=== PATIENT | female | born 1960 | race Caucasian/White ===

== ENCOUNTER 2024-09-20 14:18 | Emergency (ER) | payer BC, SELFPAY ==
--- OUTSIDE RECORDS SUMMARY | 2024-09-20 14:20 | XMS_ITS | Clinical Summary ---
Author Organization [employer] [facility] Address [address] [place] [address] Care Team Providers Care Skirt Panel Assembler Name Role Phone Racheal Aragon DO Primary Care Provider [phone] Allergies Active Allergy Reactions Criticality Noted Date Comments Sulfa (Sulfonamide Antibiotics) *Unknown - Childhood Rxn 06/06/2024 Medications losartan (COZAAR) 100 mg tabletIndications:HTN (hypertension) Take 1/2 tablet (50 mg) daily for two weeks, then increase to 1 tablet (100 mg) daily thereafter. 90 Tablet 3 06/07/19 25 Active naltrexone 50 mg tabletIndications:Alcoh ol abuse, daily use Take 1 Tablet (50 mg) by mouth once daily. 30 Tablet 1 07/10/19 25 Active atorvastatin 20 mg tabletIndications:Pure hypercholesterolemia Take 1 Tablet (20 mg) by mouth at bedtime. 90 Tablet 3 09/06/19 25 Active hydroCHLOROthiazide 50 mg tabletIndications:HTN (hypertension) Take 1 Tablet (50 mg) by mouth once daily. 90 Tablet 09/06/19 25 Active hydroCHLOROthiazide 25 mg tabletIndications:HTN (hypertension) Take 1 Tablet (25 mg) by mouth once daily. 30 Tablet 1 07/10/19 25 025 Disconti nued(Reo rder (E-cance l not sent)) atorvastatin 20 mg tabletIndications:Pure hypercholesterolemia Take 1 Tablet (20 mg) by mouth at bedtime. 90 Tablet 07/15/19 25 025 Disconti nued(Reo rder (E-cance l not sent)) Hospital, Clinic, or Other Facility Administered Medication Ordered Dose Route Frequency Start Date End Date Status naltrexone ER (4 weeks) (VIVITROL) 380 mg/4 mL intramuscular injection 380 mgIndications:Alcohol abuse, daily use 380 mg IM ONE TIME 09/18/2024 09/18/2024 Ended Active Problems Problem Noted Date Diagnosed Date ASCUS of cervix with negative high risk HPV 04/2024 Overview (07/25/2024): 06/2024 ASCUS/HPV negative Plan: HPV based testing in 3 years Pure hypercholesterolemia 07/14/2024 HTN (hypertension) 06/06/2024 Alcohol abuse, daily use 06/06/2024 Depression 06/06/2024 Moderate episode of recurrent major depressive d isorder 10/31/2016 Generalized anxiety disorder 08/31/2016 Encounters Date Type Department Care Team Description 09/18/2024 1:40 PM CDT Nurse/Clinic Staff Only [address] [address] Immunization/Injecti on (Vivitrol - first dose) 09/18/[address] [place] [address] Racheal Aragon, Immunization/Injecti on (Vivitrol order) 09/18/2024 Travel 09/17/2024 2:30 PM CDT Ancillary Procedure [address] [place] [address] Arrived 09/17/2024 2:00 PM CDT Ancillary Procedure [address] [address] Arrived 09/17/2024 Ancillary Orders [address] [address] Racheal Aragon DO 09/17/2024 Travel 09/09/[address] [place] [address] Tech, Mammo Results 09/05/2024 8:45 AM CDT Office Visit [address] [place] [address] Racheal Aragon DO Medication Management (Naltrexone - 2 drinks daily, was drinking 3 ) 09/05/2024 Travel 09/03/2024 9:15 AM CDT Orders Only [facility] [place] [address] [place] [address] Lab, [place] [facility] 09/03/2024 8:40 AM CDT Ancillary Procedure [facility] [address] [place] [address] 09/03/2024 Travel 09/01/2024 Travel 08/26/2024 Telephone [facility] [address] [place] [address] [address] Racheal Aragon DO Lab (Lab orders needed) 07/09/2024 8:45 AM CDT Office Visit [facility] [address] [place] [address] [address] Racheal Aragon DO Physical (63 year old); Immunization/Injecti on 07/09/2024 Travel 07/06/2024 Travel from Last 3 Months Immunizations Immunization Administration Dates Next Due Hepatitis A (Adult) 07/20/2010,01/12/2009 Hepatitis A, Unspecified 01/12/2009 Influenza Virus, Unspecified 12/25/2016 Influenza, IIV3 (Age >=3 years) 01/01/2014,12/11 Influenza, IIV4 04/14/2022,,02/02/2020,2019,12/24/2017,12/25/2016,12/11/2012 Influenza,LAIV3 Live Intrana brittnee (Flumist) 12/14/2010 Pneumococcal Conj 20-valent (Prevnar 20) 07/09/2024 Td, Preservative Free (age > = 7 Years) 05/22/2019,08/01/1989 Tdap 11/28/2006 Family History Medical History Relation Name Comments Diabetes type II Father Hypertension Father Hypertension Mother Cancer-breast No Family History Cancer-colon No Family History Relation Name Status Comments Father Mother Sister x3 Social History Tobacco Use Types Packs/Day Years Used Date Smoking Tobacco: Former Cigarettes 1 9 1 977 - 1986 Smokeless Tobacco: Never Tobacco Cessation:Counseling Given: Not Answered Alcohol Use Standard Drinks/Week Comments Yes 14 (1 standard drink = 0.6 oz pu re alcohol) 2-3 daily PHQ-2 Answer Date Recorded PHQ-2 TOTAL SCORE 2 06/06/2024 Social Connections Answer Date Recorded Do you often feel lonely or isolated from those around you? 0 07/06/2024 Financial Resource Strain Answer Date R ecorded Difficulty of Paying Living Expenses 3 07/06/2024 Difficulty of Paying Living Expenses Not on file 07/06/2024 Food Insecurity Answer Date Recorded Do you worry your food will run out before you are able to buy more? 1 07/06/2024 Transportation Needs Answer Date Record ed Does lack of transportation keep you from medica l appointments? 1 07/06/2024 Does lack of transportation keep you from work, meetings or getting things that you need? 1 07/06/2024 Housing Stability Answer Date Recorded What is your housing situation today? 1 07/06/2024 Utilities Answer Date Recorded Do you have trouble paying f or utilities (for example, heat, electricity, water, phone)? 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 Gender Identity Not on file Sexual Orientation Not on file Obstetrics History Last Filed Vital Signs Vital Sign Reading Time Taken Comments Blood Pressure 147/76 09/05/2024 9:10 AM CDT Pulse 80 09/05/2024 8:44 AM CDT Temperature - - Respiratory Rate - - Oxygen Saturation 99% 09/05/2024 8:44 AM CDT Inhaled Oxygen Concentration - - Weight 83.7 kg (184 lb 9.6 oz) 09/05/2024 8:44 A M CDT Height 165.8 cm (5' 5.28) 07/09/2024 8:44 AM CD T Body Mass Index 30.46 07/09/2024 8:44 AM CDT Plan of Treatment Upcoming Encounters Date Type Department Care Team (Late st Contact Info) Description 10/16/2024 9:00 AM CDT Nurse/Clinic Staff Only [facility] [address] [place] [address] Health Maintenance Due Date Last Done Comments Zoster (shingles) series for age 50+ (1 of 2) 11/21/2011 COVID-19 vaccine series ( season) 2023 04/14/2022, 08/19/2021, 04/16/2021, Additional history exists Influenza Vaccine (Season Ended) 2024 04/14/2022, 04/16/2021, 02/02/2020, Additional history exists Depression screening for age 12+ 06/06/2025 06/06/2024 BMI (ht and wt on same day) for age 18+ 07/09/2025 07/09/2024, 06/06/2024 Mammogram for age 45-75 09/17/2025 09/18/19, 09/03/2024, 01/09/2023 (Verified in Care Everywhere or Patient Record) Pap test for age 21-65 07/10/2027 , 07/09/2024, 01/31/2005 Tetanus booster 05/22/2029 05/22/2019, 07/2006, 08/01/1989 Lipids for age 45-75 09/03/2029 09/03/2024, 07/09/2024, 07/15/2021 (Verified in Care Everywhere or Patient Record) Colonoscopy through age 75 06/08/203206/08 (Verified in Care Everywhere or Patient Record) RSV vaccine for adults or (1 - 1-dose 75+ series) 2036 Tdap Completed 11/28/2006 HIV for age 15-65 Completed 07/09/2024 Hepatitis C screening for age 18-79 Completed 07/09/2024 Pneumococcal series for age 50+ Completed 07/09/2024 Hepatitis B series for 19+ Aged Out N o longer eligible based on patient's age to complete this topic Procedures Procedure Name Priority Date/Time Associated Diagnosis Comments US BREAST UNILATERAL RIGHT LIMITED PAVEL 09/17/2024 2:42 PM CDT Abnormal mammogram XR MAMMO MAK UNI ADDL VIEWS RIGHT PAVEL 09/17/2024 2:09 PM CDT Abnormal mammogram LIPID PANEL W REFLEX MEASURED LDL Routine 09/03/2024 8:59 AM CDT Pure hypercholesterolemia BASIC METABOLIC PANEL Routine 09/03/2024 8:59 AM CDT HTN (hypertension) XR MAMMO BILAT SCREENING Routine 09/03/2024 8:51 AM CDT Visit for screening mammogram COMP METABOLIC PANEL Routine 07/09/2024 9:55 AM CDT HTN (hypertension) LIPID PANEL W REFLEX MEASURED LDL Routine 07/09/2024 9:55 AM CDT Screening for lipid disorders ANTI HIV 1/2 Routine 07/09/2024 9:55 AM CDT Screening for HIV (human immunodeficiency virus) ANTI HCV Routine 07/09/2024 9:55 AM CDT Need for hepatitis C screening test RESIDENTIAL PROGRAM MANAGER THIN PREP PAP SCREEN IMAGED Routine 07/09/2024 9:29 AM CDT Screening for cervical cancer HPV HIGH RISK Routine 07/09/2024 9:29 AM CDT Screening for cervical cancer from Last 3 Months Results * US BREAST UNILATERAL RIGHT LIMITED (09/17/2024 2:42 PM CDT) Anatomical Region Laterality Modality BREASTS, Breast Right Right Ultrasound Narrative 09/17/2024 4:39 PM CDT As a result of the Century Cures Act, medical imaging exams and procedure reports are released immediately into your electronic medical record. You may view this report before your referring provider. If you have questions, please contact your health care provider. RIGHT BREAST ULTRASOUND 09/17/2024 PLEASE SEE [id number] FOR RIGHT DIGITAL ADDITIONAL VIEWS MAMMOGRAM OF SAME DAY. us Racheal Aragon DO US Final Resu lt * XR MAMMO MAK UNI ADDL VIEWS RIGHT (09/17/2024 2:09 PM CDT) Anatomical Region Laterality Modality BREASTS, Breast Right Mammograph y 09/17/2024 3:59 PM CDT Impressions 09/17/2024 4:39 PM CDT Indeterminate hypoechoic shadowing tissue within the RIGHT breast 11 o'clock 5 cm from the nipple measuring 11 x 6 x 9 millimeters. RECOMMENDATIONS: Ultrasound-guided core needle biopsy. BI-RADS Category 4. Suspicious. Dictated by: Stanley Strong MD @09/17/2024 3:59:16 PM/leticia PATIENTS: You will also receive a letter with your examination results in an easy to read format. If you have questions about your results, please contact your referring provider. Narrative 09/17/2024 4:39 PM CDT As a result of the Cures Act, medical imaging exams and procedure reports are released immediately into your electronic medical record. You may view this report before your referring provider. If you have questions, please contact your health care provider. RIGHT BREAST MAMMOGRAM DIGITAL ADDITIONAL VIEWS WITH TOMOSYNTHESIS 09/17/2024 RIGHT BREAST ULTRASOUND 09/17/2024 CLINICAL HISTORY: RIGHT breast mass/asymmetry. COMPARISON: 09/03/2024, 01/09/2023, 08/25/2021. TECHNIQUE: Digital RIGHT mammogram in 5 projections. Tomosynthesis was used in this interpretation. Real-time ultrasound imaging of RIGHT breast with imaging documentation. Scanning was performed by both the technologist and the radiologist. BREAST COMPOSITION: The breasts are heterogeneously dense, which may obscure small masses. FINDINGS: Additional mammogram images submitted. There is a persistent asymmetric density within the upper outer quadrant. Magnification views demonstrate loosely grouped punctate microcalcifications in the adjacent parenchyma without pleomorphism. Targeted RIGHT breast ultrasound performed. At 11 o'clock 5 cm from the nipple there is an ill-defined area of hypoechoic tissue with distal shadowing that measures approximately 11 x 6 x 9 millimeters. us Racheal Aragon DO MAMMO Final Resu lt * LIPID PANEL W REFLEX MEASURED LDL (09/03/2024 8:59 AM CDT) Only the most recent of2 resultswithin the time period is included. CHOLESTEROL, TOTAL 165 <200 mg/dL [facility] HDL CHOLESTEROL 68 > OR = 50 mg/dL [facility] TRIGLYCERIDES 71 <150 mg/dL [facility] LDL-CHOLESTEROL 82 mg/dL (calc) [facility] Comment: Reference range: <100 Desirable range <100 mg/dL for primary prevention; <70 mg/dL for patients with CHD or diabetic patients with > or = 2 CHD risk factors. LDL-C is now calculated using the Irena calculation, which is a validated novel method providing better accuracy than the Friedewald equation in the estimation of LDL-C. Reynaldo TRAN et al. JUAN. 2013;310(19): 2770-9588 (http://education.Trailerpop/faq/LTE133) CHOL/HDLC RATIO 2.4 <5.0 (calc) [facility] NON HDL CHOLESTEROL 97 <130 mg/dL (calc) [facility] Comment: For patients with diabetes plus 1 major ASCVD risk factor, treating to a non-HDL-C goal of <100 mg/dL (LDL-C of <70 mg/dL) is considered a therapeutic option. Blood BLOOD SPECIMEN / Unknown 09/03/2024 8:59 AM CDT 09/03/2024 9:00 AM CDT us Racheal Aragon DO CHEMISTRY Final Resu lt [employer] [facility] [address] [place] [address], [facility] [address] [place] [address] * BASIC METABOLIC PANEL (09/03/2024 8:59 AM CDT) [facility] GLUCOSE 87 65 - 99 mg/dL [facility] Comment: Fasting reference interval UREA NITROGEN (BUN) 13 7 - 25 mg/dL [facility] CREATININE 0.74 0.50 - 1.05 mg/dL [facility] EGFR 91 > OR = 60 mL/min/1. 73m2 [facility] BUN/CREATININE RATIO SEE NOTE: 6 - 22 (calc) [facility] Comment: Not Reported: BUN and Creatinine are within reference range. SODIUM 137 135 - 146 mmol/L [facility] POTASSIUM 4.0 3.5 - 5.3 mmol/L [facility] CHLORIDE 98 98 - 110 mmol/L [facility] CARBON DIOXIDE 29 20 - 32 mmol/L [facility] ELECTROLYTE BALANCE 10 7 - 17 mmol/L (calc) [facility] CALCIUM 9.7 8.6 - 10.4 mg/dL [facility] Blood BLOOD SPECIMEN / Unknown 09/03/2024 8:59 AM CDT 09/03/2024 9:00 AM CDT us Racheal Aragon DO CHEMISTRY Final Resu lt [employer] [facility] [address] [place] [address], [facility] [address] [place] [address] * XR MAMMO BILAT SCREENING (09/03/2024 8:51 AM CDT) Anatomical Region Laterality Modality BREASTS, Breast Left, Breast Right Bilateral Mammography Impressions 09/08/2024 3:00 PM CDT RIGHT breast asymmetry/mass. RECOMMENDATIONS: Additional mammographic views of the RIGHT breast including 3D spot-compression CC/MLO. RIGHT breast ultrasound may also be required. A member of the breast health care team will contact the patient to schedule the required additional imaging appointment(s). BI-RADS Category 0: Incomplete: Need Additional Imaging Evaluation Dictated by: Stanley Strong MD @09/08/2024 2:11:55 PM /sp PATIENTS: You will also receive a letter with your examination results in an easy to read format. If you have questions about your results, please contact your referring provider. Narrative 09/08/2024 3:00 PM CDT As a result of the Century Cures Act, medical imaging exams and procedure reports are released immediately into your electronic medical record. You may view this report before your referring provider. If you have questions, please contact your health care provider. BILATERAL BREAST MAMMOGRAM DIGITAL SCREENING WITH COMPUTER-AIDED DETECTION 09/03/2024 CLINICAL HISTORY: Routine screening exam. COMPARISON: 01/09/2023, 08/25/2021. TECHNIQUE: Digital mammogram in CC and MLO projections including computer-aided detection (CAD). BREAST COMPOSITION: There are scattered areas of fibroglandular density. FINDINGS: RIGHT Breast: Focal asymmetric density upper-outer quadrant 5 cm from the nipple. LEFT Breast: No suspicious findings. us Racheal Aragon DO MAMMO Final Resu lt * ANTI HCV (07/09/2024 9:55 AM CDT) Pathologist [facility] HEPATITIS C ANTIBODY NON-REACTI VE NON-REACT JOSEPHINE [facility] Comment: HCV antibody was non-reactive. There is no laboratory evidence of HCV infection. In most cases, no further action is required. However, if recent HCV exposure is suspected, a test for HCV RNA (test code 12254) is suggested. For additional information please refer to http://education.ViperMed/faq/LSK83w7 (This link is being provided for informational/ educational purposes only.) Blood BLOOD SPECIMEN / Unknown 07/09/2024 9:55 AM CDT 07/09/2024 9:55 AM CDT Narrative [email or web address] - 07/10/2024 11:54 AM CDT FASTING:YES FASTING: YES us Racheal Aragon DO SEND OUTS Final Resu lt [employer] [facility] [address] [place] [address], [email or web address] [address] [place] [address] * ANTI HIV 1/2 [71228.0] (07/09/2024 9:55 AM CDT) [facility] HIV AG/AB, 4TH GEN NON-REACT JOSEPHINE NON-REACT JOSEPHINE [facility] Comment: HIV-1 antigen and HIV-1/HIV-2 antibodies were not detected. There is no laboratory evidence of HIV infection. PLEASE NOTE: This information has been disclosed to you from records whose confidentiality may be protected by state law. If your state requires such protection, then the state law prohibits you from making any further disclosure of the information without the specific written consent of the person to whom it pertains, or as otherwise permitted by law. A general authorization for the release of medical or other information is NOT sufficient for this purpose. For additional information please refer to http://education.ViperMed/faq/YHE820 (This link is being provided for informational/ educational purposes only.) The performance of this assay has not been clinically validated in patients less than 2 years old. Blood BLOOD SPECIMEN / Unknown 07/09/2024 9:55 AM CDT 07/09/2024 9:55 AM CDT Narrative [employer] - 07/10/2024 10:51 AM CDT FASTING:YES FASTING: YES us Racheal Aragon DO SEND OUTS Final Resu lt [facility] [facility] [address] [place] [address], [facility] [address] [place] [address] * COMP METABOLIC PANEL (07/09/2024 9:55 AM CDT) Pathologist [facility] GLUCOSE 91 65 - 99 mg/dL [facility] Comment: Fasting reference interval UREA NITROGEN (BUN) 9 7 - 25 mg/dL [facility] CREATININE 0.67 0.50 - 1.05 mg/dL [facility] EGFR 99 > OR = 60 mL/min/1. 73m2 [facility] BUN/CREATININE RATIO SEE NOTE: (calc) [facility] Comment: Not Reported: BUN and Creatinine are within reference range. SODIUM 140 135 - 146 mmol/L [facility] POTASSIUM 4.2 3.5 - 5.3 mmol/L [facility] CHLORIDE 105 98 - 110 mmol/L [facility] CARBON DIOXIDE 24 20 - 32 mmol/L [facility] CALCIUM 10.0 8.6 - 10.4 mg/dL [facility] PROTEIN, TOTAL 7.7 6.1 - 8.1 g/dL [facility] ALBUMIN 4.6 3.6 - 5.1 g/dL [facility] GLOBULIN 3.1 1.9 - 3.7 g/dL (calc) [facility] ALBUMIN/GLOBULIN RATIO 1.5 1.0 - 2.5 (calc) [facility] BILIRUBIN, TOTAL 0.7 0.2 - 1.2 mg/dL [facility] ALKALINE PHOSPHATASE 55 37 - 153 U/L [facility] AST 20 10 - 35 U/L [facility] ALT 26 6 - 29 U/L [facility] Blood BLOOD SPECIMEN / Unknown 07/09/2024 9:55 AM CDT 07/09/2024 9:55 AM CDT Narrative [facility] - 07/10/2024 7:14 AM CDT FASTING:YES FASTING: YES us Racheal Aragon DO CHEMISTRY Final Resu lt [facility] [address] [place] [address], [facility] [address] [place] [address] * (ABNORMAL) RESIDENTIAL PROGRAM MANAGER THIN PREP PAP SCREEN IMAGED [[id number]] (07/09/2024 9:29 AM CDT) Case Report Gynecologic Cytology Report Case: [id number] Authorizing Provider: Racheal Aragon DO Collected: 07/09/2024 0929 Ordering Location: [facility] Received: 07/09/2024 0949 Clinic First Screen: Baccam, Minie Pathologist: Shilo Huerta Jr., MD Specimen: RESIDENTIAL PROGRAM MANAGER ThinPrep Vial Screening, Cervical 07/25/2024 9:23 AM CDT [facility] [employer] [facility] INTERPRETATION/ RESULT ATYPICAL SQUAMOUS CELLS OF UNDETERMINED SIGNIFICANCE (ASCUS)(A) (none) 07/25/2024 9:23 AM CDT [facility] at 0923 CDT SPECIMEN ADEQUACY Satisfactory for evaluation Endocervical component present 07/25/2024 9:23 AM CDT [facility] ENTRAL [facility] HPV REQUEST HPV and PAP 07/25/2024 9:23 AM CDT [facility] Date of LMP n/a 07/25/2024 9:23 AM CDT [facility] Last Pap Date n/a 07/25/2024 9:23 AM CDT [facility] ENTR[facility] Last Pap Result First Pap/Unknown 9:23 AM CDT [facility] EN[facility] Abnormal Pap or [place] Bx in last 5 years No 07/25/2024 9:23 AM CDT [facility] ENTRAL [facility] Menstrual Status Postmenopausal 07/25/2024 9:23 AM CDT [facility] ENTRAL LAB[facility]ORY [place] Bx Done Today No 07/25/2024 9:23 AM CDT [facility] EN[facility] Additional Information None given 07/25/2024 9:23 AM CDT [facility] EN[facility] Comment: Cytology is screened at [facility] [employer] [facility] - [address], [place] [address] and [facility] - [address] [place] [address] and [facility] - [address] [place] [address] Interpreted at [facility] [employer] [facility] Central Laboratory - [address], [place] [address] Automated Review Successful 07/25/2024 9:23 AM CDT [facility] EN[facility] Comment:Specimen processed s uccessfully by automated terrazzo installer device, ThinPrep Imaging System, [employer] ANCILLARY TESTING RESIDENTIAL PROGRAM MANAGER HPV Ordered, Please see separate report 07/25/2024 9:23 AM CDT [facility] Note The pap test is a screening technique, not a diagnostic procedure. It is used primarily to screen for squamous cancers and precursor lesions. Published studies have shown that it is subject to both false negative and false positive results. The pap test should not be used as the sole means to diagnose or exclude pre-malignant and malignant lesions. 07/25/2024 9:23 AM CDT [facility] Other (Cervical) Non-Blood / Unknown 07/09/2024 9:29 AM CDT 07/09/2024 9:49 AM CDT Racheal Aragon DO PATHOLOGY/CYTOLOGY Final R esult Performing Organization Address [facility] de Phone Number [facility] [address] [place] [address] * HPV HIGH RISK (07/09/2024 9:29 AM CDT) TYPE 16 Negative Negative 07/11/2024 5:07 PM CDT [facility] TYPE 18 Negative Negative 07/11/2024 5:07 PM CDT [facility] OTHER HIGH RISK TYPES Negative Negative 07/11/2024 5:07 PM CDT [facility] Other (Cervical) Non-Blood / Unknown 07/09/2024 9:29 AM CDT 07/09/2024 3:46 PM CDT Narrative [facility] - 07/11/2024 5:07 PM CDT HPV types 16, 18, 31, 33, 35, 39, 45, 51, 52, 56, 58, 59, 66 and 68 DNA were undetectable or below the pre-set threshold. Methodology: Razmir Scott 4800 HPV Test Racheal Aragon DO MICROBIOLOGY Final Resu lt Performing Organization Address [facility] Co de Phone Number [facility] [address] [place] [address], [place] from Last 3 Months Insurance [employer] Care Teams Skirt Panel Assembler Relationship Specialty Start Date End Date Racheal Aragon DO [address] [place] [address] PCP - General Family Practice 06/06/24
[2024-09-20 14:29] VITALS: BP 129/68; PULSE 100; RESP 20; TEMP 36.8; O2SAT 98; BMI 30.1
--- NOTE | 2024-09-20 14:58 | CRLHL7_ITS ---
For Patients: As a result of the Century Cures Act, medical imaging exams and procedure reports are released immediately into your electronic medical record. You may view this report before your referring provider. If you have questions, please contact your health care provider. INDICATION: Tripped and landed face 1st on the ground. Lip laceration. TECHNIQUE: Noncontrast axial CT of the head. Coronal and sagittal reformats. Bone and soft tissue algorithms. COMPARISON: None. FINDINGS: The ventricles and cortical sulci appear age-appropriate. No midline shift or mass effect. No acute intracranial hemorrhage or extra-axial fluid collection. Thomson-white matter differentiation is grossly maintained. White matter attenuation is within normal limits. Intracranial vessels are unremarkable for technique. Midline structures are unremarkable. The calvarium appears grossly intact. Lobulated mucosal thickening along the inferior maxillary sinuses. No air-fluid level, mastoid or middle ear effusion. Unremarkable orbits. IMPRESSION: 1. No skull fracture or acute intracranial hemorrhage identified. Please note that all CT scans at this facility use dose modulation, iterative reconstruction, and/or weight-based dosing when appropriate to reduce radiation dose to as low as reasonably achievable. Dictated by Brianna Gold MD @ 09/20/2024 3:48:42 PM (Electronically Signed)
--- NOTE | 2024-09-20 15:53 | ED.GENADULT ---
HPI - General Adult General Date Seen: 09/20/24 Chief complaint: Head Injury/Pain Stated complaint: fell- mouth injury Time Seen by Provider: 09/20/24 14:20 History of Present Illness HPI narrative: Patient is a 63-year-old woman who is here with her after having fallen at home a little bit ago. She says that she fell a couple of hours ago, her was out of town and she was waiting till he got back to come in. She said that her cat was on the step, she thought it was the bottom step, stepped over the cat but missed a step and then fell forward hitting her face on the ground. She notes a loose front tooth, cuts on her lip, her chin feels kind of swollen but not overly painful. She thinks she may have blacked out for a secondary to but she does remember the whole incident. She does not have any neck pain. No other injuries or complaints. She is up-to-date on immunizations. No other significant medical history, not anticoagulated. Related Data Home Medications ?Medication ?Instructions ?Recorded ?Confirmed atorvastatin 20 mg tablet 20 mg PO DAILY 09/20/24 09/20/24 hydrochlorothiazide 25 mg tablet 25 mg PO DAILY 09/20/24 09/20/24 hydrochlorothiazide 50 mg tablet 50 mg PO DAILY 09/20/24 09/20/24 losartan 100 mg tablet 100 mg PO DAILY 09/20/24 09/20/24 naltrexone 50 mg tablet 50 mg PO DAILY 09/20/24 09/20/24 Allergies Allergy/AdvReac Type Severity Reaction Status Date / Time Sulfa (Sulfonamide Allergy Intermediate Verified 09/20/24 14:27 Antibiotics) Review of Systems Status of ROS: Reports: 6 or more systems reviewed and unremarkable except as noted in History and below Exam Narrative: Exam Narrative: Vital signs reviewed In general, alert, nontoxic Head: Normocephalic. Eyes: Sclera clear. Pupils equal and reactive. Extraocular movements are full. ENT: She has several small lacerations on her lower lip, none of which involve the vermilion border. Bleeding controlled. The right upper central incisor is broken, there is a horizontal crack across the top of the tooth although the base of the tooth and the root are still solidly planted in the maxilla. The entire body of the tooth is essentially able to be folded back along that fracture line, but is otherwise still attached. Jaw is nontender without deformity. Chin is little swollen but nontender to palpation. Neck: Supple without adenopathy. Nontender to palpation. Neurologic: Alert, conversant. Speech fluent, face symmetric. Moves all extremities equally. Skin: Warm, dry well perfused. Affect: Normal. Const: Vital Signs, click to edit/add: Vital Signs - 24 hr 09/20/24 14:29 Temperature 98.2 F Pulse Rate [Pulse Oximeter] 100 Respiratory Rate 20 Blood Pressure [Ri ght Upper Arm] 129/68 Pulse Oximetry 98 Oxygen Delivery Me thod Room Air Course Course ED Course: She had a head CT which by my review showed no evidence of hemorrhage. Read as negative by Radiology for skull fracture or acute intracranial hemorrhage. I did consult our emergency dentist, as I do not have anything to splint the broken tooth and it is clearly going to need to be managed more urgently. Procedure note: With regard to the lip, I anesthetized this with lidocaine with epinephrine, cleaned out the wounds, no evidence of foreign body, I closed these with 5 0 Vicryl, I placed a total of 5 simple interrupted superficial sutures in the small lacerations, all of these are 0.5 cm or less. There were a total of 3 small lacerations I placed 2 sutures into these and 1 suture in the other. She tolerated this well without immediate complication. Discussed routine wound care, what to watch for and when to return. Did discuss that this is absorbable suture but at that the wound will heal before the sutures absorb and that she may want to get them taken out in around 5-7 days. She is discharged from the ER, have instructions to call the emergency dentist who plans to meet her at the dental clinic to take care of the tooth. She declines any need for anything for pain. Vital Signs Vital signs: Initial Vital Signs Temperature 98.2 F 09/20/24 14:29 Temperature Source Temporal Artery Scan 09/20/24 14:29 Pulse Rate 100 09/20/24 14:29 Respiratory Rate 20 09/20/24 14:29 Blood Pressure 129/68 09/20/24 14:29 Blood Pressure Mean 88 09/20/24 14:29 Pulse Oximetry 98 09/20/24 14:29 Oxygen Delivery Method Room Air 09/20/24 14:29 Vital Signs Temperature 98.2 F 09/20/24 14:29 Pulse Rate 100 09/20/24 14:29 Respiratory Rate 20 09/20/24 14:29 Blood Pressure 129/68 09/20/24 14:29 Pulse Oximetry 98 09/20/24 14:29 Oxygen Delivery Method Room Air 09/20/24 14:29 Temperature 98.2 F 09/20/24 14:29 Pulse Rate 100 09/20/24 14:29 Respiratory Rate 20 09/20/24 14:29 Blood Pressure 129/68 09/20/24 14:29 Pulse Oximetry 98 09/20/24 14:29 Oxygen Delivery Method Room Air 09/20/24 14:29 Medical Decision Making Imaging Data CT scan - head: Attestation: I have reviewed the pertinent imaging results. Radiologist's impression: Patient: Anastasiia Granados MR#: [id number] : 1960 Acct:[id number] Loc: ED Service Date: 09/20/[address]: Ordering Physician: Arely Amador M.D. Date of Service: 09/20/24 Procedure(s): CT head/brain wo con Accession Number(s): [id number] cc: Arely Amador M.D.; Provider,Not a Local~ For Patients: As a result of the Century Cures Act, medical imaging exams and procedure reports are released immediately into your electronic medical record. You may view this report before your referring provider. If you have questions, please contact your health care provider. INDICATION: Tripped and landed face 1st on the ground. Lip laceration. TECHNIQUE: Noncontrast axial CT of the head. Coronal and sagittal reformats. Bone and soft tissue algorithms. COMPARISON: None. FINDINGS: The ventricles and cortical sulci appear age-appropriate. No midline shift or mass effect. No acute intracranial hemorrhage or extra-axial fluid collection. Thomson-white matter differentiation is grossly maintained. White matter attenuation is within normal limits. Intracranial vessels are unremarkable for technique. Midline structures are unremarkable. The calvarium appears grossly intact. Lobulated mucosal thickening along the inferior maxillary sinuses. No air-fluid level, mastoid or middle ear effusion. Unremarkable orbits. IMPRESSION: 1. No skull fracture or acute intracranial hemorrhage identified. Please note that all CT scans at this facility use dose modulation, iterative reconstruction, and/or weight-based dosing when appropriate to reduce radiation dose to as low as reasonably achievable. Dictated by Brianna Gold MD @ 09/20/2024 3:48:42 PM Discharge Plan Discharge Clinical Impression: Laceration of lip, Dental trauma Patient Disposition: Home, Self-Care Condition: Improved Instructions: Laceration (DC) Additional Instructions: Please call the number provided to speak with the on-call dentist. He will meet you at the clinic to take care of your broken tooth. With regard to the lacerations on your lip, I did use dissolvable sutures, but this type of suture will take usually about 14 days to dissolve. The cuts will be healed within 5-7 days. If you would like to have the sutures removed at that time, you can see your clinic. If you note signs of infection such as significant swelling, pain, redness or drainage, return at any time for recheck. Your head CT is normal without evidence of bleeding or skull fracture. If you have severe headache, vomiting, confusion etcetera you should be seen again. Prescriptions: No Action atorvastatin 20 mg tablet 20 mg PO DAILY hydrochlorothiazide 50 mg tablet 50 mg PO DAILY naltrexone 50 mg tablet 50 mg PO DAILY hydrochlorothiazide 25 mg tablet 25 mg PO DAILY losartan 100 mg tablet 100 mg PO DAILY Follow Up/Referrals: Provider,Not a Local [Primary Care Provider, Family Practice] Stand Alone Forms: Upstream Info Instructions
[2024-09-20 16:10] VITALS: BP 129/77; PULSE 74; RESP 18; TEMP 36.1; O2SAT 97
== END 2024-09-20 17:23 | disposition home or self-care (01) ==
PROVIDERS: Emergency Provider Emergency Medicine
DX: S01.511A Laceration without foreign body of lip, initial encounter (principal); S02.5XXA Fracture of tooth (traumatic), initial encounter for closed fracture; W01.0XXA Fall on same level from slipping, tripping and stumbling without subsequent striking against object, initial encounter
CPT/HCPCS: 12011; 70450; 99284

== ENCOUNTER 2024-09-23 08:57 | Outpatient (CLI) | payer BC, SELFPAY ==
--- NOTE | 2024-09-23 09:15 | CRLHL7_ITS ---
For Patients: As a result of the Century Cures Act, medical imaging exams and procedure reports are released immediately into your electronic medical record. You may view this report before your referring provider. If you have questions, please contact your health care provider. ULTRASOUND-GUIDED BREAST BIOPSY AND POST-BIOPSY DIGITAL MAMMOGRAM FOR BIOPSY MARKER PLACEMENT CLINICAL HISTORY: RIGHT BREAST MASS. COMPARISON STUDIES: US 09/17/24, MAMMO 09/17/24, 09/03/24. TECHNIQUE: Real-time ultrasound with image documentation was used for targeting the breast lesion. Core biopsy specimens were obtained using an automated gun with a 16-gauge biopsy needle. Post-biopsy CC and ML digital mammograms were obtained to document position of the biopsy marker. CONSENT and TIME OUT: The procedure, risks, and alternatives were explained to the patient and a consent was signed. [place] Protocol was followed including pre-procedure verification that relevant information/documentation was available, reviewed and properly matched to the patient; consent accurate and complete; and equipment and supplies available. Time Out was conducted just prior to starting procedure to verify the four required elements: patient identity, correct side/site marked (if applicable), procedure, relevant images/results properly labeled and displayed (if applicable). PROCEDURE: The patient was positioned supine on the ultrasound table. The breast was prepped with ChloraPrep. 8 cc 1% lidocaine used for local anesthesia. Core samples were obtained. A sterile metal biopsy clip was placed percutaneously to bill the lesion position within the breast. The specimens were placed in 10% formalin and sent to the pathology department. Pressure was held on the biopsy site until all bleeding subsided. The skin incision was closed with Steri-Strips. An ice pack was positioned over the biopsy site. Post-biopsy instructions were reviewed with the patient, and a written copy was given to her. LATERALITY: RIGHT breast. LESION: Ill-defined hypoechoic and shadowing lesion measuring approximately 1 cm at 11 o`clock 5 cm from the nipple. SUSPICION FOR MALIGNANCY: High, although possibly PASH. NUMBER OF SAMPLES: 8. BIOPSY CLIP SHAPE: Oval. PROXIMITY OF CLIP TO TARGET: Within the lesion. IMPRESSION: Ultrasound-guided breast biopsy. When the pathology report is available, an addendum to this report will be made. ACR not applicable Dictated by Stanley Strong MD @ 09/23/2024 10:15:33 AM jj/Dictated by: Stanley Strong MD @ 09/23/2024 10:15:00 AM (Electronically Signed)
--- NOTE | 2024-09-23 10:00 | CRLHL7_ITS ---
For Patients: As a result of the Century Cures Act, medical imaging exams and procedure reports are released immediately into your electronic medical record. You may view this report before your referring provider. If you have questions, please contact your health care provider. SEE ULTRASOUND-GUIDED RIGHT BREAST BIOPSY PERFORMED SAME DAY CRL:roque nevarez/Dictated by: Stanley Strong MD @ 09/23/2024 10:12:00 AM (Electronically Signed)
--- OUTSIDE RECORDS SUMMARY | 2024-09-24 00:50 | XMS_ITS | Clinical Summary ---
Author Organization [employer] [facility] [facility] Address [address] [place] [id number] Care Team Providers Care Executive Receptionist Name Role Phone Racheal Aragon DO Primary Care Provider [phone]- [phone] Allergies Active Allergy Reactions Criticality Noted Date [...] Encounters Date Type Department Care Team Description 09/23/2024 Lab Requisition [facility] [phone] Unknown, Doctor 09/18/2024 1:40 PM CDT Nurse/Clinic Staff Only [address] [address] Immunization/Inject ion (Vivitrol - first dose) 09/18/2024 Telephone [facility] [address] [place] [address] Racheal Aragon, Immunization/Inject ion (Vivitrol order) 09/18/2024 Travel 09/17/2024 2:30 PM CDT Ancillary Procedure [address] [address] 09/17/2024 2:00 PM CDT Ancillary Procedure [address] [address] 09/17/2024 Ancillary Orders [address] [address] Racheal Aragon DO 09/17/2024 Travel 09/09/[address] [address] Tech, Mammo Results 09/05/2024 8:45 AM CDT Office Visit [address] [facility] [address] Racheal Aragon, Medication Management (Naltrexone - 2 drinks daily, was drinking 3 ) 09/05/2024 Travel 09/03/2024 9:15 AM CDT Orders Only [facility] [address] [facility] [address] Lab, [place] [facility] 09/03/2024 8:40 AM CDT Ancillary Procedure [facility] [address] [facility] [address] 09/03/2024 Travel 09/01/2024 Travel 08/26/2024 Telephone [facility] [address] [facility] [address] Racheal Aragon DO Lab (Lab orders needed) 07/09/2024 8:45 AM CDT Office Visit [facility] [address] [place] [place] [address] Racheal Aragon DO Physical (63 year old); Immunization/Inject ion 07/09/2024 Travel 07/06/2024 Travel from Last 3 [...] on file 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 Gender Identity Not on file Sexual Orientation [...] 10/16/2024 9:00 AM CDT Nurse/Clinic Staff Only [facility] [address] [place] [address] Health Maintenance Due Date Last Done Comments [...] , 07/09/2024, 01/31/2005 Tetanus booster 05/22/2029 05/22/2019, 0907/2006, 08/01/1989 Lipids for age 45-75 09/03/2029 09/03/2024, 07/09/2024, 07/15/2021 (Verified in Care Everywhere or Patient Record) Colonoscopy through age 75 06/08/203206/08 (Verified in Care Everywhere or Patient Record) RSV vaccine for adults or (1 - 1-dose 75+ series) 2036 (IA) Tdap Completed 11/28/2006 HIV for age 15-65 [...] CDT Need for hepatitis C screening test PRODUCTION UTILITY WORKER THIN PREP PAP SCREEN IMAGED Routine 07/09/2024 [...] provider. RIGHT BREAST ULTRASOUND 09/17/2024 PLEASE SEE [id number] FOR RIGHT DIGITAL ADDITIONAL VIEWS MAMMOGRAM OF [...] is included. CHOLESTEROL, TOTAL 165 <200 mg/dL [facility] HDL CHOLESTEROL 68 > OR = 50 mg/dL [facility] TRIGLYCERIDES 71 <150 mg/dL [facility] LDL-CHOLESTEROL 82 mg/dL (calc) [facility] Comment: Reference range: <100 Desirable range <100 mg/dL for primary prevention; <70 mg/dL for patients with CHD or diabetic patients with > or = 2 CHD risk factors. LDL-C is now calculated using the Irena calculation, which is a validated novel method providing better accuracy than the Friedewald equation in the estimation of LDL-C. Reynaldo SS et al. JUAN. 2013;310(19): 1017-5427 (http://education.[employer]/faq/BMC460) CHOL/HDLC RATIO 2.4 <5.0 (calc) [facility] NON HDL CHOLESTEROL 97 <130 mg/dL (calc) [facility] Comment: For patients with diabetes plus 1 major ASCVD risk factor, treating to a non-HDL-C goal of <100 mg/dL (LDL-C of <70 mg/dL) is considered a therapeutic option. Blood BLOOD SPECIMEN / Unknown 09/03/2024 8:59 AM CDT 09/03/2024 9:00 AM CDT us Racheal Aragon DO CHEMISTRY Final Resu lt [employer] [facility] [address] [place] [address], [facility] [address] [place] [address] * BASIC METABOLIC PANEL (09/03/2024 8:59 AM CDT) [facility] GLUCOSE 87 65 - 99 mg/dL [facility] Comment: Fasting reference interval UREA NITROGEN (BUN) 13 7 - 25 mg/dL [facility] CREATININE 0.74 0.50 - 1.05 mg/dL [facility] EGFR 91 > OR = 60 mL/min/1. [...] 8:59 AM CDT 09/03/2024 9:00 AM CDT Racheal Aragon DO CHEMISTRY Final Resu lt [employer] [facility] [address] [place] [address], [facility] [address] [place] [address] * XR MAMMO BILAT SCREENING (09/03/2024 8:51 [...] * ANTI HCV (07/09/2024 9:55 AM CDT) HEPATITIS C ANTIBODY NON-REACTI VE NON-REACT JOSEPHINE [facility] Comment: HCV antibody was non-reactive. There is no laboratory evidence of HCV infection. In most cases, no further action is required. However, if recent HCV exposure is suspected, a test for HCV RNA (test code 53938) is suggested. For additional information please refer to http://education.Bbready.com/faq/NWE49j3 (This link is being provided for informational/ educational purposes only.) Blood BLOOD SPECIMEN / Unknown 07/09/2024 9:55 AM CDT 07/09/2024 9:55 AM CDT Narrative [facility] - 07/10/2024 11:54 AM CDT FASTING:YES FASTING: YES us Racheal Aragon DO SEND OUTS Final Resu lt [employer] [facility] [address] [place] [address], [facility] [address] [place] [address] * ANTI HIV 1/2 [30128.0] (07/09/2024 9:55 AM CDT) HIV AG/AB, 4TH GEN NON-REACT JOSEPHINE NON-REACT JOSEPHINE [facility] Comment: HIV-1 antigen and HIV-1/HIV-2 antibodies [...] purpose. For additional information please refer to http://education.Bbready.com/faq/KIE788 (This link is being provided for informational/ educational purposes only.) The performance of this assay has not been clinically validated in patients less than 2 years old. Blood BLOOD SPECIMEN / Unknown 07/09/2024 9:55 AM CDT 07/09/2024 9:55 AM CDT Narrative [facility] - 07/10/2024 10:51 AM CDT FASTING:YES FASTING: YES Racheal Aragon DO SEND OUTS Final Resu lt [employer] [facility] [address] [place] [address], [facility] [address] [place] [address] * COMP METABOLIC PANEL (07/09/2024 9:55 AM CDT) GLUCOSE 91 65 - 99 mg/dL [facility] Comment: Fasting reference interval UREA NITROGEN (BUN) 9 7 - 25 mg/dL [facility] CREATININE 0.67 0.50 - 1.05 mg/dL [facility] EGFR 99 > OR = 60 mL/min/1. 73m2 [facility] BUN/CREATININE RATIO SEE NOTE: (calc) [facility] Comment: Not Reported: BUN and Creatinine are [...] 07/10/2024 7:14 AM CDT FASTING:YES FASTING: YES Racheal Aragon DO CHEMISTRY Final Resu lt [facility] [address] [place] [address], [facility] [address] [place] [address] * (ABNORMAL) PRODUCTION UTILITY WORKER THIN PREP PAP SCREEN IMAGED [[id number]] (07/09/2024 9:29 AM CDT) Case Report Gynecologic Cytology Report Case: [id number] Authorizing Provider: Racheal Aragon DO Collected: 07/09/2024 0929 Ordering Location: [facility] Received: 07/09/2024 0949 Clinic First Screen: Alex Miles Pathologist: Shilo Huerta Jr., MD Specimen: PRODUCTION UTILITY WORKER ThinPrep Vial Screening, Cervical 07/25/2024 9:23 AM CDT [facility]TRAL LABORATORY INTERPRETATION/ RESULT ATYPICAL SQUAMOUS CELLS OF UNDETERMINED SIGNIFICANCE (ASCUS)(A) (none) 07/25/2024 9:23 AM CDT [facility] [employer] [facility] ENTRAL LABORATORY at 0923 CDT SPECIMEN ADEQUACY Satisfactory for evaluation Endocervical component present 07/25/2024 9:23 AM CDT [facility] [employer] [facility] EN[facility]AL LAB[facility]AT[facility] HPV REQUEST HPV and PAP 07/25/2024 9:23 AM CDT [facility] [employer] [facility] EN[facility] LAB[facility] Date of LMP n/a 07/25/2024 9:23 AM CDT [facility] [employer] [facility] Last Pap Date n/a 07/25/2024 9:23 AM CDT [facility] [employer] LABORATORY-C ENTRAL LABORATORY Last Pap Result First Pap/Unknown 9:23 AM CDT [facility] [employer] [facility] EN[facility]AL LABORATORY Abnormal Pap or [place] Bx in last 5 years No 07/25/2024 9:23 AM CDT [facility] [employer] [facility] Menstrual Status Postmenopausal 07/25/2024 9:23 AM CDT [facility] [employer] [facility] ENTRAL LABORATORY [place] Bx Done Today No 07/25/2024 9:23 AM CDT [facility] [employer] [facility] ENTRAL LABORATORY Additional Information None given 07/25/2024 9:23 AM CDT [facility] [employer] [facility]AT[facility] Comment: Cytology is screened at [facility], Central Laboratory - [address], [place] [address] and [facility] Laboratory - [address], [place] [address] and [facility] Laboratory - [address] [place] [address] Interpreted at [facility], Central Laboratory - [address], [place] [address] Automated Review Successful 07/25/2024 9:23 AM CDT [facility] LABORATORY Comment:Specimen processed s uccessfully by automated brake drum lathe operator device, .Club Domains[employer] Imaging System, [employer] ANCILLARY TESTING PRODUCTION UTILITY WORKER HPV Ordered, Please see separate report 07/25/2024 9:23 AM CDT [facility] Note The pap test is a [...] and malignant lesions. 07/25/2024 9:23 AM CDT [facility] Other (Cervical) Non-Blood / Unknown 07/09/2024 9:29 AM CDT 07/09/2024 9:49 AM CDT Racheal Aragon DO PATHOLOGY/CYTOLOGY Final R esult [facility] [address] [place] [address], * HPV HIGH RISK (07/09/2024 9:29 AM CDT) TYPE 16 Negative Negative 07/11/2024 5:07 PM CDT [facility] TRAL LABORATORY TYPE 18 Negative Negative 07/11/2024 5:07 PM CDT [facility] OTHER HIGH RISK TYPES Negative Negative 07/11/2024 5:07 PM CDT [facility] Other (Cervical) Non-Blood / Unknown 07/09/2024 9:29 AM CDT 07/09/2024 3:46 PM CDT Narrative [facility] - 07/11/2024 5:07 PM CDT HPV types 16, 18, 31, 33, 35, 39, 45, 51, 52, 56, 58, 59, 66 and 68 DNA were undetectable or below the pre-set threshold. Methodology: Autrement (HotelHotel) Scott 4800 HPV Test Racheal Aragon DO MICROBIOLOGY Final Resu lt [facility] LABORATORY-CENTRAL LABORATORY [address] [place] [address], [place] from Last 3 Months Insurance [employer] Care Teams Executive Receptionist Relationship Specialty Start Date End Date Racheal Aragon [place] [address] PCP - General Family Practice 06/06/24
== END 2024-09-23 08:58 | disposition home or self-care (01) ==
LOC: US 08:58
PROVIDERS: Visit Provider Family Medicine
DX: N63.10 Unspecified lump in the right breast, unspecified quadrant (principal); D05.11 Intraductal carcinoma in situ of right breast; R92.8 Other abnormal and inconclusive findings on diagnostic imaging of breast
CPT/HCPCS: 19083; 77065; A4648; A4649

== ENCOUNTER 2024-10-07 09:21 | Day surgery (SDC) | payer BC, SELFPAY ==
[2024-10-07 09:45] VITALS: BMI 28.9
[2024-10-07 10:05] VITALS: BP 145/75; PULSE 76; RESP 16; TEMP 37.6; O2SAT 97
[2024-10-07] MEDS: SODIUM CHLORIDE 0.9 % (FLUSH) 10 ML SYRINGE IVF (10:07)
[2024-10-07] MEDS: LACTATED RINGERS 1000 ML 1,000 ML 100 ML IV (10:07)
--- NOTE | 2024-10-07 11:00 | CRLHL7_ITS ---
For Patients: As a result of the Century Cures Act, medical imaging exams and procedure reports are released immediately into your electronic medical record. You may view this report before your referring provider. If you have questions, please contact your health care provider. INDICATION: Right-sided breast carcinoma presenting for sentinel node evaluation prior to surgery. TECHNIQUE: [place] lymph node study performed after the intradermal injection of 0.94 mCi Tc-99m Filtered sulfur colloid in the upper outer right breast. FINDINGS: The procedure and its risks were explained in detail to the patient including but not limited to the risk of bleeding, infection, and a nondiagnostic procedure. The patient understood the procedure and its risks and elected to proceed. [place] protocol was followed and the Time Out procedure was performed. Then, using sterile technique and local anesthesia, an intradermal injection of 0.94 mCi Tc-99m Filtered sulfur colloid was made in the upper outer right breast in the periareolar region. No complications. Dictated by Stanley Strong MD @ 10/07/2024 11:52:01 AM (Electronically Signed)
--- NOTE | 2024-10-07 11:10 | P.ANES_ITS ---
Anesthesia Charges Start Date/Time Anesthesia Start Date: 10/07/24 Anesthesia Start Time: 12:19 Stop Date/Time Anesthesia Stop Date: 10/07/24 Anesthesia Stop Time: 13:55 Coding CPT Codes CPT Codes: ANESTH SURGERY OF SHOULDER - 27235 ([id number]) P3 - PATIENT W/SEVERE SYS DISEASE, QK - [place] ENGINEER 2-4 CNCRNT ANES PROC, QX - MEAT PROCESS WORKER SVC W/ MD MED DIRECTION
--- NOTE | 2024-10-07 11:10 | W.ANESCHARGE ---
Anesthesia Charges Start Date/Time Anesthesia Start Date: 10/07/24 Anesthesia Start Time: 12:19 Stop Date/Time Anesthesia Stop Date: 10/07/24 Anesthesia Stop Time: 13:55 Coding CPT Codes CPT Codes: ANESTH SURGERY OF SHOULDER - 14296 ([id number]) P3 - PATIENT W/SEVERE SYS DISEASE, QK - WING COVERER 2-4 CNCRNT ANES PROC, QX - RN PEDIATRIC SVC W/ MD MED DIRECTION
--- NOTE | 2024-10-07 11:15 | CRLHL7_ITS ---
For Patients: As a result of the Cures Act, medical imaging exams and procedure reports are released immediately into your electronic medical record. You may view this report before your referring provider. If you have questions, please contact your health care provider. RIGHT BREAST WIRE LOCALIZATION USING ULTRASOUND GUIDANCE AND MAMMOGRAM POST LOCALIZATION CLINICAL HISTORY: Right breast cancer. LATERALITY: RIGHT breast. LESION: Subtle hypoechoic shadowing mass measuring 1 cm 11 o`clock 5 cm from the nipple. LOCALIZATION WIRE: [place] hookwire. TECHNIQUE: The localization wire was placed using real-time ultrasound guidance with image documentation. Cranial-caudal and medial-lateral digital mammograms were obtained after localization wire placement. CONSENT and TIME OUT: The procedure, risks, and alternatives were explained to the patient and a consent was signed. Dennis Protocol was followed including pre-procedure verification that relevant information/documentation was available, reviewed and properly matched to the patient; consent accurate and complete; and equipment and supplies available. Time Out was conducted just prior to starting procedure to verify the four required elements: patient identity, correct side/site marked (if applicable), procedure, relevant images/results properly labeled and displayed (if applicable). PROCEDURE: The skin was prepped with ChloraPrep and 8 cc of 1% lidocaine was injected for local anesthesia. The localization wire was placed within or near the targeted breast lesion using ultrasound guidance. The patient tolerated the procedure well. PROXIMITY OF WIRE TO LESION: The wire is present through the mass immediately adjacent to the clip. IMPRESSION: Successful breast wire localization. ACR not applicable Dictated by Stanley Strong MD @ 10/07/2024 12:26:45 PM /sp SP/Dictated by: Stanley Strong MD @ 10/07/2024 12:26:00 PM (Electronically Signed)
--- NOTE | 2024-10-07 11:38 | W.PM.H&PU ---
History & Physical Update History & Physical Update H&P Reviewed and patient assessed: No changes noted
--- NOTE | 2024-10-07 11:44 | PM.GSPRC ---
Operative Note Date of procedure: 10/07/24 Pre-op diagnosis: 1. Right breast high-grade DCIS, ER negative. Post-op diagnosis: Same Type of Procedure: 1. Right breast wire localized lumpectomy. 2. Right breast sentinel lymph node biopsy. Indications: 63-year-old female was seen in clinic with a newly diagnosed right breast DCIS. Patient was noted to have an asymmetry on the mammogram of the right breast. An ultrasound showed an area of 11 x 9 mm at 11:00 5 cm from the nipple. Core needle biopsy came back as grade 3 solid and cribriform DCIS with necrosis with no evidence of invasive carcinoma. Estrogen was negative. On clinical exam patient's breast size is approximately C cup size and bilateral breast tissue is dense to palpation. In the right breast there was resolving post biopsy ecchymosis at 11:00 adjacent to areola but the mass was not palpable. There was no bilateral axillary lymphadenopathy. Given patient's clinical history and the finding of high-grade DCIS that is ER negative, I recommended to proceed with wire localized right lumpectomy and right sentinel lymph node biopsy due to suspicion for error in sampling of invasive carcinoma. The procedures were discussed with the patient in detail. The risks associated procedure including infection, bleeding, a seroma, the need for additional procedures, and lymphedema, were all discussed with the patient, and she agreed to proceed. Procedure Description: After discussing the risks and benefits of the procedure, the patient signed informed consent.? The operative site was marked and the patient was brought to the operating room and placed on the operating table in supine position.? Care was taken to pad the patient's pressure points.?? The patient was then sedated by anesthesia.?? The operative site was then prepped and draped in the usual sterile fashion.? A time-out was then performed. Pre-operative mammographic films taken after wire localization were reviewed. The mixture of Lidocaine and Marcaine was used as local anesthetic and was injected at the site of the incision. The lumpectomy was performed by making a?curvilinear incision incision in the?right breast spanning from?8 to 12 o'clock.? Subcutaneous skin flaps were developed until the wire was encountered.? The wire was pulled into the surgical field. The breast tissue around the wire was then excised in a cylinder like fashion following the course of the wire using cautery.? This was done with frequent palpation of the wire.? The specimen was then excised making sure that the wire was still in the specimen. Margins of the specimen were inked and the specimen was then sent to mammography first to confirm presence of the wire and the clip and to pathology afterwards for gross margins. Three ml (milliliters) of Lymphazurin blue was personally injected by me near the right nipple for sentinel lymph node identification in same-day surgery 1 hour prior to start of the procedure. A [place] counter was brought onto the field in the right axilla to identify the best area for the sentinel node biopsy. An oblique skin incision was then made over that area. Subcutaneous tissues were dissected with electrocautery. A green lymph node was identified and appeared to have radioactive signal of 5011. This was excised with cautery. This was sent to pathology as the sentinel node #1. Axillary ruiz tissue was examined again with the [place] counter and and no additional significant signal was identified. Hemostasis was achieved with cautery. This incision was then closed in layers with 3-0 Vicryl interrupted stitches to re-approximate subcutaneous layer and 4-0 Monocryl subcuticular stitch to close skin. Pathologist reviewed the right breast lumpectomy specimen and the biopsy clip was identified in the surgical specimen.? There was no tumor palpated in the specimen. All margins were grossly negative with the closest margin superior at 6 mm. I elected to remove additional breast tissue with a new superior margin. This was done with cautery. The new margin was then excised with cautery and inked for orientation. The new superior margin was sent to pathology for permanent section. Surgical field was examined for bleeding and any bleeding was controlled with electrocautery. Breast tissue was reapproximated with cautery for tension free closure with interrupted 2-0 Vicryl stitches. Interrupted subdermal stitches were placed with 3-0 Vicryl as well and skin was closed with 4-0 Monocryl subcuticular stitch. Steristrips and sterile dressings were applied over both incisions. At the end of the operation, all sponge, instrument, and needle counts were correct. Patient tolerated the procedure well and was transferred to same-day surgery in stable condition. Findings: Biopsy clip was seen in the specimen. No palpable tumor was identified in the specimen. One sentinel lymph node was removed. Anesthesia: MAC and local Surgeon: Angel Cyr MD Estimated blood loss (mL): 5 Additional Specimen Information: 1. Right lumpectomy. 2. Right sentinel lymph node # 1. 3. New superior margin of the right breast. Condition: stable Disposition: same day [place] Node Biopsy for Breast Cancer Operation Performed with Curative Intent: Yes Tracers used to Identify sentinel nodes in the upfront surgery (non-neoadjuvant) setting: Dye and Radioactive Tracer Tracers used to identify sentinel nodes in the neoadjuvant setting: N/A All nodes (colored or non-colored) present at the end of a dye filled lymphatic channel were removed: Yes All significantly radioactive nodes were removed: Yes All palpably suspicious nodes were removed: Yes Biopsy proven positive nodes marked with clips prior to chemotherapy were identified and removed: Not Applicable
--- NOTE | 2024-10-07 12:00 | CRLHL7_ITS ---
For Patients: As a result of the Century Cures Act, medical imaging exams and procedure reports are released immediately into your electronic medical record. You may view this report before your referring provider. If you have questions, please contact your health care provider. PLEASE SEE RIGHT BREAST WIRE LOCALIZATION OF SAME DAY. CRL:sp SP/Dictated by: Stanley Strong MD @ 10/07/2024 12:25:00 PM (Electronically Signed)
[2024-10-07] MEDS: ISOSULFAN BLUE 5 ML VIAL INJECTION (12:27)
--- NOTE | 2024-10-07 12:49 | CRLHL7_ITS ---
For Patients: As a result of the Cures Act, medical imaging exams and procedure reports are released immediately into your electronic medical record. You may view this report before your referring provider. If you have questions, please contact your health care provider. CLINICAL HISTORY: RIGHT breast cancer. COMPARISON: 10/07/2024, 09/23/2024. FINDINGS: Two views of the RIGHT breast specimen are submitted. Biopsied mass, biopsy clip and localization wire are present. IMPRESSION: The mass, clip and wire are all present in the specimen. ACR not applicable. Dictated by Stanley Strong MD @ 10/07/2024 2:57:25 PM /sp SP/Dictated by: Stanley Strong MD @ 10/07/2024 2:57:00 PM (Electronically Signed)
[2024-10-07] MEDS: LIDOCAINE 1%-EPI 1:100,000 20 ML INFILTRATI (13:27)
[2024-10-07] MEDS: BUPIVACAINE 0.25% 30 ML INJECTION (13:27)
[2024-10-07 13:52] VITALS: BP 124/64; PULSE 77; RESP 16; TEMP 37; O2SAT 93
[2024-10-07 14:00] VITALS: BP 122/67; PULSE 64; RESP 16; O2SAT 93
--- NOTE | 2024-10-07 14:05 | P.ANES_ITS ---
Anesthesia Charges Start Date/Time Anesthesia Start Date: 10/07/24 Anesthesia Start Time: 12:19 Stop Date/Time Anesthesia Stop Date: 10/07/24 Anesthesia Stop Time: 13:55 Coding CPT Codes CPT Codes: ANESTH SURGERY OF SHOULDER - 51930 ([id number]) P3 - PATIENT W/SEVERE SYS DISEASE, QK - [place] CAR OVERHAULER 2-4 CNCRNT ANES PROC, QX - FILTER PLANT OPERATOR SVC W/ MD MED DIRECTION
--- NOTE | 2024-10-07 14:05 | W.ANESCHARGE ---
Anesthesia Charges Start Date/Time Anesthesia Start Date: 10/07/24 Anesthesia Start Time: 12:19 Stop Date/Time Anesthesia Stop Date: 10/07/24 Anesthesia Stop Time: 13:55 Coding CPT Codes CPT Codes: ANESTH SURGERY OF SHOULDER - 14424 ([id number]) P3 - PATIENT W/SEVERE SYS DISEASE, QK - ELECTRONICS ASSEMBLER 2-4 CNCRNT ANES PROC, QX - RIVET STICKER SVC W/ MD MED DIRECTION
[2024-10-07 14:15] VITALS: BP 120/63; PULSE 76; RESP 16; TEMP 37.1; O2SAT 92
[2024-10-07 14:30] VITALS: BP 119/65; PULSE 65; RESP 16; O2SAT 95
[2024-10-07 15:00] VITALS: BP 126/60; PULSE 81; RESP 16; O2SAT 93
--- NOTE | 2024-10-21 11:23 | ONC.NURNOTE ---
Pt called with concerns about swollen 'lump' around axilla incision. Denies pain, redness, drainage; possible seroma. Sched with Dr. Combs tomorrow 1030 at [place], as Dr. Cyr is out of town.
== END 2024-10-07 15:29 | disposition home or self-care (01) ==
PROVIDERS: PCP Family Medicine; Visit Provider Surgery
PROC: (CPT 19301; principal; 2024-10-07 12:00)
PROC: (CPT 19301; 2024-10-07 12:00)
PROC: (CPT 19301; 2024-10-07 12:00)
DX: D05.11 Intraductal carcinoma in situ of right breast (principal); Z17.1 Estrogen receptor negative status [ER-]
CPT/HCPCS: 19301; 38500; 01610; 19285; 38792; 76942; 77065; A9541; C1769; J0665; J0690; J2405; J2704; J3010; J3490; J7120

== ENCOUNTER 2024-10-29 10:45 | Outpatient (CLI) | payer BC, SELFPAY | END 2024-10-29 10:46 | disposition home or self-care (01) | LOC: RAD 10:46 | PROVIDERS: PCP Family Medicine; Visit Provider Internal Medicine Hematology & Oncology | DX: C50.919 Malignant neoplasm of unspecified site of unspecified female breast (principal); Z51.81 Encounter for therapeutic drug level monitoring; Z79.899 Other long term (current) drug therapy | CPT/HCPCS: 93306 ==

== ENCOUNTER 2024-11-03 08:48 | Day surgery (SDC) | payer BC, SELFPAY ==
[2024-11-03 09:05] VITALS: BMI 28.3
[2024-11-03 09:08] VITALS: BP 145/77; PULSE 83; RESP 20; TEMP 37.1; O2SAT 97
[2024-11-03] MEDS: SODIUM CHLORIDE 0.9 % (FLUSH) 10 ML SYRINGE IVF (09:25)
[2024-11-03] MEDS: LACTATED RINGERS 500 ML 500 ML 100 ML IV (09:29)
--- NOTE | 2024-11-03 09:51 | W.PM.H&PU ---
History & Physical Update History & Physical Update H&P Reviewed and patient assessed: No changes noted
--- NOTE | 2024-11-03 09:51 | PM.GSPRC ---
Operative Note Date of procedure: 11/03/24 Pre-op diagnosis: 1. Right breast extensive DCIS with invasive ductal carcinoma. 2. Desire for chemotherapy treatment. Post-op diagnosis: Same Type of Procedure: 1. Right internal jugular Port-A-Cath placement with ultrasound and fluoroscopy guidance. Indications: 63-year-old female who recently underwent right lumpectomy and right sentinel lymph node biopsy and was found to have extensive DCIS with 2 foci of invasive ductal carcinoma was seen by medical oncology. Chemotherapy treatment was recommended. The patient was referred to us for Port-A-Cath placement. Patient denies any procedures on her neck. She has no open sores or active infections. The procedure was discussed in detail. The risks associated procedures including infection, bleeding, pneumothorax, and the need for additional procedures were all discussed with the patient, and she agreed to proceed. Procedure Description: After discussing the risks and benefits of the procedure, the patient signed informed consent.? The operative site was marked and the patient was brought to the operating room and placed on the operating table in supine position.? Care was taken to pad the patient's pressure points.?? The patient was then sedated by anesthesia.?? The operative site was then prepped and draped in the usual sterile fashion.? A time-out was then performed. Ultrasound was brought on to the field and the right internal jugular vein was assessed. This was found to be large and easily compressible. The base of the neck directly overlying the internal jugular vein was then anesthetized with 1% lidocaine and 0.25% Marcaine mixture, and an introducer needle was inserted into the internal jugular vein using ultrasound guidance. Entry into the vein was confirmed by the presence of dark, nonpulsatile blood. A guide wire was advanced through the needle. The introducer needle was removed, leaving the wire in place. Fluoroscopy was brought onto the field and used to confirm the passage of the wire through the superior vena cava and into the right ventricle. Lidocaine was then used to infiltrate the port skin site, along with the proposed tunneling tract. A 3 cm incision was made at the site of the port pocket and subcutaneous tissue was dissected down using electrocautery. Subcutaneous pocket was created with blunt dissection and electrocautery. The catheter was advanced through the subcutaneous tissue using a tunneling trocar, exiting the incision at the base of the neck. The trocar was then disconnected. Fluoroscopy was again brought on to the field and the internal jugular vein and adjacent subcutaneous tissue was dilated with a pre-split introducer sheath in place. The wire was removed and the catheter was inserted into the introducer sheath. As the catheter was advanced, the sheath was split and divided, removing the sheath as the catheter was advanced into place. Fluoroscopy was again brought on to the field and the catheter position was examined. The entire course of the catheter was then viewed, and catheter was pulled back under direct visualization to ensure that the tip is in the SVC. The port was connected to the catheter tip and placed into previously created pocket. Prolene was used to place anchoring port sutures and the port was then secured in the pocket. The flow through the catheter was checked with a syringe, and found to be excellent. The incision at the base of the neck was then closed with a single interrupted 4-0 monocryl stitch and dressed with a Steri-Strip and a sterile bandage. Subdermal layer was re-approximated with interrupted 3-0 vicryl stitches and skin over the port was closed with 4-0 monocryl using subcuticular stitch. [place] needle was inserted through the skin into the port and the port was flushed with heparinized saline. The needle was then removed. Steri strips, sterile 2x2 and Tegaderm was applied over the incision. The patient was then roused and brought to same day surgery in satisfactory condition. Sponge and needle counts were correct at the end of the procedure. Post procedure CXR was ordered to be done in same day surgery. ? The patient tolerated the procedure well. Findings: Easily accessed right internal jugular vein. Anesthesia: MAC and local Surgeon: Angel Cyr MD Estimated blood loss (mL): 5 Condition: stable Disposition: same day
[2024-11-03] MEDS: LIDOCAINE 1%-EPI 1:100,000 20 ML INFILTRATI (11:58)
[2024-11-03] MEDS: BUPIVACAINE 0.25% 30 ML INJECTION (11:58)
[2024-11-03] MEDS: 0.9% SODIUM CHL 50 ML VIAL INJECTION (12:16)
[2024-11-03] MEDS: HEPARIN 500 UNIT/5 ML SYRINGE IVF (12:17)
--- NOTE | 2024-11-03 12:23 | CRLHL7_ITS ---
For Patients: As a result of the Century Cures Act, medical imaging exams and procedure reports are released immediately into your electronic medical record. You may view this report before your referring provider. If you have questions, please contact your health care provider. INDICATION: Post Port-A-Cath insertion TECHNIQUE: Chest 1 view COMPARISON: None. FINDINGS: Cardiovasculature and mediastinum: Heart size is normal. Unremarkable mediastinum. Right chest port catheter with tip terminating with the distal aspect of the superior vena cava. Lungs and pleural spaces: Lungs are clear. No sign of infiltrate or mass. No sign of pleural effusion. No pneumothorax. Bones and soft tissues: Right chest wall/breast surgical clips.. IMPRESSION: Right chest port catheter in appropriate position. No acute findings. Dictated by Jessie Drake MD @ 11/03/2024 12:58:48 PM (Electronically Signed)
--- NOTE | 2024-11-03 12:30 | CRLHL7_ITS ---
For Patients: As a result of the Century Cures Act, medical imaging exams and procedure reports are released immediately into your electronic medical record. You may view this report before your referring provider. If you have questions, please contact your health care provider. Indication: Port-A-Cath placement Technique: One-view chest, fluoroscopic. Fluoroscopic time 74.5 seconds. IMPRESSION: Fluoroscopic guidance for Port-A-Cath placement. Dictated by Stanley Strong MD @ 11/03/2024 12:29:48 PM (Electronically Signed)
[2024-11-03 12:31] VITALS: BP 99/52; PULSE 67; RESP 16; TEMP 36.7; O2SAT 97
--- NOTE | 2024-11-03 12:31 | P.ANES_ITS ---
Anesthesia Charges Start Date/Time Anesthesia Start Date: 11/03/24 Anesthesia Start Time: 11:38 Stop Date/Time Anesthesia Stop Date: 11/03/24 Anesthesia Stop Time: 12:33 Coding CPT Codes CPT Codes: ANESTH VASCULAR ACCESS - 95237 ([id number]) P2 - PATIENT W/MILD SYST DISEASE, QK - SEAFOOD FARMER 2-4 CNCRNT ANES PROC, QX - BRUSHER SVC W/ MD MED DIRECTION
--- NOTE | 2024-11-03 12:31 | W.ANESCHARGE ---
Anesthesia Charges Start Date/Time Anesthesia Start Date: 11/03/24 Anesthesia Start Time: 11:38 Stop Date/Time Anesthesia Stop Date: 11/03/24 Anesthesia Stop Time: 12:33 Coding CPT Codes CPT Codes: ANESTH VASCULAR ACCESS - 71461 ([id number]) P2 - PATIENT W/MILD SYST DISEASE, QK - MUTUAL FUND MANAGER 2-4 CNCRNT ANES PROC, QX - BIOFUELS PRODUCT DEVELOPMENT MANAGER SVC W/ MD MED DIRECTION
--- NOTE | 2024-11-03 12:36 | P.ANES_ITS ---
Anesthesia Charges Start Date/Time Anesthesia Start Date: 11/03/24 Anesthesia Start Time: 11:38 Stop Date/Time Anesthesia Stop Date: 11/03/24 Anesthesia Stop Time: 12:33 Coding CPT Codes CPT Codes: ANESTH VASCULAR ACCESS - 13027 ([id number]) QK - INFANT CAREGIVER 2-4 CNCRNT ANES PROC, QX - RIVET THROWER SVC W/ MD MED DIRECTION, P2 - PATIENT W/MILD SYST DISEASE
--- NOTE | 2024-11-03 12:36 | W.ANESCHARGE ---
Anesthesia Charges Start Date/Time Anesthesia Start Date: 11/03/24 Anesthesia Start Time: 11:38 Stop Date/Time Anesthesia Stop Date: 11/03/24 Anesthesia Stop Time: 12:33 Coding CPT Codes CPT Codes: ANESTH VASCULAR ACCESS - 41542 ([id number]) QK - SLICING MACHINE OPERATOR/TENDER 2-4 CNCRNT ANES PROC, QX - DIRECTOR OF ASSESSMENT SVC W/ MD MED DIRECTION, P2 - PATIENT W/MILD SYST DISEASE
[2024-11-03 12:45] VITALS: BP 101/62; PULSE 72; RESP 16; O2SAT 97
[2024-11-03 13:12] VITALS: BP 119/61; PULSE 61; RESP 16; O2SAT 98
== END 2024-11-03 13:40 | disposition home or self-care (01) ==
PROVIDERS: PCP Family Medicine; Visit Provider Surgery
PROC: (CPT 36561; principal; 2024-11-03 12:00)
DX: Z45.2 Encounter for adjustment and management of vascular access device (principal); C50.411 Malignant neoplasm of upper-outer quadrant of right female breast; Z17.1 Estrogen receptor negative status [ER-]; Z17.22 Progesterone receptor negative status; Z17.31 Human epidermal growth factor receptor 2 positive status
CPT/HCPCS: 36561; 00532; 71045; 76000; 76998; C1788; J0665; J0690; J1642; J2250; J2704; J3010; J7120

== ENCOUNTER 2025-02-05 08:40 | Outpatient (CLI) | payer BC, SELFPAY | END 2025-02-05 08:41 | disposition home or self-care (01) | LOC: RAD 08:40 | PROVIDERS: PCP Family Medicine; Visit Provider Internal Medicine Hematology & Oncology | DX: Z51.81 Encounter for therapeutic drug level monitoring (principal); Z79.899 Other long term (current) drug therapy; C50.919 Malignant neoplasm of unspecified site of unspecified female breast | CPT/HCPCS: 93308; 93321; 93325 ==